=== PATIENT | female | born 1960 | race Caucasian/White ===

== ENCOUNTER 2017-04-26 16:41 | Observation (INO) ==
[2017-04-26] MEDS ORDERED: Nitroglycerin 0.4 MG TAB.SUBL SL ONE (16:59)
[2017-04-26 17:26] LABS: Basophils % 0.2 %; Eosinophils # 0.1 K/mcL (0.0-0.6); Eosinophils % 0.5 %; Hematocrit 40.4 % (35.3-44.9); Hemoglobin 13.5 g/dL (11.5-15.4); Immature Granulocytes % 0.4 % (0-4); Lymphocytes # 3.1 K/mcL (0.6-4.6); Lymphocytes % 20.4 %; Mean Corpuscular HGB Conc 33.4 g/dL (31.6-35.5); Mean Corpuscular Hemoglobin 27.6 pg (28.0-33.3); Mean Corpuscular Volume 82.4 fL (83.0-100.0); Mean Platelet Volume 9.3 fL (9.4-12.4); Monocytes # 0.6 K/mcL (0.0-1.3); Monocytes % 3.8 %; Neutrophils # 11.5 K/mcL (1.6-8.9); Platelet Count 284 K/mcL (140-400); Red Cell Distribution Width 12.6 % (11.5-14.5); Segmented Neutrophils % 74.7 %
[2017-04-26 17:39] LABS: BUN/Creatinine Ratio 13 (6-26); Blood Urea Nitrogen 12 mg/dL (7-20); Calcium 9.5 mg/dL (8.6-10.8); Carbon Dioxide 21 mEq/L (19-29); Chloride 104 mEq/L (98-109); Glucose 131 mg/dL (70-99); Osmolality,Calculated 284 (280-300); Potassium 3.5 mEq/L (3.5-4.5); Sodium 136 mEq/L (136-145); eGFR For African Americans > 60 (> 60); eGFR For Non-African Americans > 60 (> 60)
--- NOTE | 2017-04-26 18:01 | Emergency Department Note ---
Disposition Clinical Impression: Chest pain Qualifiers: Chest pain type: unspecified Qualified Code(s): R07.9 - Chest pain, unspecified Disposition: Admitted As Inpatient Condition: Fair Referrals: Nikki Palma CNP [Primary Care Provider] - Forms: ED Satisfaction Letter Time of Disposition: 18:29 Chest Pain HPI - General Chief Complaint: ED Chest Pain Stated Complaint: chest discomfort, nausea, vertigo Time Seen by Provider: 04/26/17 16:57 Source: patient, EMS Limitations: no limitations Vital Signs Reviewed: Yes Nursing Notes Reviewed: Yes - History of Present Illness HPI Narrative: Patient is a 56-year-old female who presents to [facility] ED with a chief complaint of substernal chest pain which she describes as a pressure. States this symptom started around 2:30 in the in the afternoon after she had finished doing some cleaning. Admits to some nausea with an episode of vomiting. No recent fevers or chills. States the pain radiates into her shoulder blades and into her shoulders. Denies any shortness of breath , abdominal pain, problems with urination or bowel movement. Patient did take a baby aspirin which states it seemed to help her symptoms. Pt complaint: chest pain Onset (ago): hour(s) Duration: intermittent Onset: during rest Pain Location: substernal Severity: mild Severity scale (1-10): 0 Quality: heaviness Pain Radiation: RUE, LUE, back - Related Data Previous Rx's Medication Instructions Recorded Amoxicillin 875 mg PO BID #20 tablet 12/23/15 Benzonatate [Tessalon] 200 mg PO TID PRN #30 capsule 12/23/15 GuaiFENesin ER [Mucinex] 1,200 mg PO BID #20 tbbp.12hr 12/23/15 Allergies Allergy/AdvReac Type Severity Reaction Status Date / Time Sulfa (Sulfonamide Allergy Nausea Verified 12/23/15 14:35 Antibiotics) All systems ED: reviewed and negative except as stated. Chest Pain PMH - Past Medical History Medical history: Reports: hyperlipidemia, hypertension Psychiatric history: Reports: no psych history 1[employer] history: Reports: ectopic - Social History Smoking Status: Current every day smoker Alcohol use: Reports: rarely Drug use: Reports: none Physical Exam CONSTITUTIONAL: Well-appearing; well-nourished; A&O X 3, in no apparent distress HEAD: Normocephalic; atraumatic EYES: PERRL, no scleral icterus NOSE: The nose is normal in appearance without rhinorrhea NECK: No JVD or distended neck veins RESP: Normal chest excursion with respiration; breath sounds clear and equal bilaterally; no wheezes, rhonchi, or rales CARD: Regular rhythm, without murmurs, rub or gallop ABD: Non-distended; non-tender, soft, without rigidity, rebound or guarding,no pulsatile mass CHEST: No pain with palpation SKIN: Normal for age and race; warm and dry without diaphoresis ; no apparent lesions EXTREMITIES: Pulses are 2 plus and equal times 4 extremities, no peripheral edema or calf muscle pain - General Limitations: no limitations General appearance: alert Course Course Narrative: Patient seen and examined. Chest pain described as a pressure. Has significant family cardiac history. Last stress test was many years ago. Patient has multiple risk factors including smoking, hypertension, hyperlipidemia as well. Cardiopulmonary workup initiated. We will give sublingual nitroglycerin trial. - Reevaluation(s) Reevaluation #1: Patient's chest pain went away with nitroglycerin. We will page hospitalist for admission for chest pain, rule out ACS. Time: 18:15 Reevaluation #2: Patient accepted by hospitalist Dr. Sinha. Time: 18:29 Vital Signs Temperature 97.6 F 04/26/17 16:46 Pulse Rate 61 04/26/17 16:46 Respiratory Rate 14 04/26/17 16:46 Blood Pressure 177/80 04/26/17 16:46 O2 Sat by Pulse Oximetry 98 04/26/17 16:46 Temperature 97.6 F 04/26/17 16:46 Pulse Rate 53 04/26/17 18:07 Respiratory Rate 14 04/26/17 18:07 Blood Pressure 147/62 04/26/17 18:07 O2 Sat by Pulse Oximetry 98 04/26/17 18:07 Oxygen Delivery Oxygen Delivery Room Air Chest Pain - Medical Records Medical records reviewed: Yes I reviewed the patient's medical records. - Lab Data Lab results reviewed: Yes I reviewed the patient's lab results. Result diagrams: 04/26/17 17:19 04/26/17 17:19 Lab Results 04/26/17 04/26/17 04/26/17 Range/Units 17:19 17:19 17:19 WBC 15.3 H (4.3-11.1) K/mcL RBC 4.90 (3.82-4.97) M/mcL Hgb 13.5 (11.5-15.4) g/dL Hct 40.4 (35.3-44.9) % MCV 82.4 L (83.0-100.0) fL MCH 27.6 L (28.0-33.3) pg MCHC 33.4 (31.6-35.5) g/dL RDW 12.6 (11.5-14.5) % Plt Count 284 (140-400) K/mcL MPV 9.3 L (9.4-12.4) fL Immature Gran % 0.4 (0-4) % Seg Neutrophils % 74.7 % Lymphocytes % 20.4 % Monocytes % 3.8 % Eosinophils % 0.5 % Basophils % 0.2 % Neutrophils # 11.5 H (1.6-8.9) K/mcL Lymphocytes # 3.1 (0.6-4.6) K/mcL Monocytes # 0.6 (0.0-1.3) K/mcL Eosinophils # 0.1 (0.0-0.6) K/mcL Basophils # 0.0 (0.0-0.2) K/mcL Sodium 136 (136-145) mEq/L Potassium 3.5 (3.5-4.5) mEq/L Chloride 104 (98-109) mEq/L Carbon Dioxide 21 (19-29) mEq/L BUN 12 (7-20) mg/dL Creatinine 0.91 (0.57-1.11) mg/dL Est GFR ( Amer) > 60 (> 60) Est GFR (Non-Af Amer) > 60 (> 60) BUN/Creatinine Ratio 13 (6-26) Glucose 131 H (70-99) mg/dL Calculated Osmolality 284 (280-300) Calcium 9.5 (8.6-10.8) mg/dL Troponin I 0.00 (0-0.03) ng/mL - Radiology Data Radiology results reviewed: Yes I reviewed the patient's radiology results. Chest X-Ray 04/26/17 16:59 IMPRESSION: No acute cardiopulmonary process D/ / 04/26/2017 17:27:26 David Li MD / veronika Interpreting Provider: David Li MD - EKG Data EKG attestation: Yes I reviewed and interpreted this EKG. EKG results narrative: EKG done at 1655 shows sinus bradycardia with a rate of [address] elevation or depression. Normal axis. Appears unchanged from prior EKG done . Heart Score - Score History: Moderately Suspicious EKG: Normal Age: 45-65 Risk Factors: Equal/Greater than 3 risk factor or history of atherosclerotic disease Troponin: Less than normal limit HEART Score Total: 4 Attestation Statement - Attestation Attestation: Patient was seen with resident physician. I reviewed the history, physical, assessment and plan, and agree with the findings. I also personally evaluated this patient and had [id number] time with this patient. 56-year-old female presents to the emergency department with sudden onset of chest pressure. Patient states that prior to arrival she developed the sensation of chest pressure as if she is being squeezed. There is some shortness of breath and some diaphoresis associated with that. She states that she is getting hot and cold flashes. She has not had cardiac disease in the past but does have a strong family history. She denies vomiting or diarrhea but has had some nausea. She was given nausea medication in route she said which showed minimum effectiveness. On examination vital signs are stable. ENT is unremarkable. Heart and lungs normal. Abdomen is soft and nontender. Extremities show no acute abnormalities. Neurologically she is intact. ED course workup for cardiac disease was negative. The chest pain resolved with one sublingual nitroglycerin. She was given aspirin. EKG showed no acute ischemic changes. Chest x-ray showed no acute abnormalities. Hospital service was notified at the need for admission. We will admit for cardiac rule out. Agree with resident physician assessment and plan.
[2017-04-26] MEDS ORDERED: Aspirin 81 MG TAB.CHEW PO STA (18:12)
[2017-04-26] MEDS ORDERED: Naloxone 0.4 MG/ML INJ IVP PRN (21:48)
[2017-04-26] MEDS ORDERED: Acetaminophen 325 MG TABLET PO PRN (21:48)
[2017-04-26] MEDS ORDERED: *HR* Morphine 2 MG/ML SYRINGE IVP PRN (21:48)
[2017-04-26] MEDS ORDERED: Ondansetron 4 MG/2 ML VIAL IVP PRN (21:48)
--- NOTE | 2017-04-26 22:02 | Internal Med History&Physical ---
Date of Encounter: 04/26/17 Time of Encounter: 21:20 Assessment and Plan (1) Chest pain Current visit: Yes Status: Acute 1. Patient with significant FH and smoking history -- both risk factors for CAD. 2. Will cycle troponins and EKG's. 3. Will schedule stress test for tomorrow. 4. Check lipid profile. 5. Smoking cessation well advised. Qualifiers: Chest pain type: precordial pain Qualified Code(s): R07.2 - Precordial pain (2) Near syncope Current visit: Yes Status: Acute 1. Will check ECHO and Carotid Dopplers. 2. Patient bradycardic on EKG (HR 50's) and states she takes Bisoprolol for HTN. 3. Need to verify meds. Hold home meds for now and monitor telemetry. 4. Stress test as above. (3) Esophageal stricture Current visit: Yes Status: Chronic 1. May be etiology for chest pain. 2. Needs to follow up with GI as outpatient once cardiac issues addressed. (4) DVT prophylaxis Current visit: Yes Status: Acute 1. Heparin SQ. Internal Medicine - H&P: HPI Chief complaint: chest pain, near syncope Admitted From: Emergency Dept Plans for Post Hospital Care: Home History of present illness: Ms. Nath is a 56 year old female who presents to ER with complaints of chest pain, lightheadedness, dizziness, and near syncope. She was in the middle of cleaning her bathroom earlier today when she experienced some lightheadedness and dizziness followed by substernal chest pain and pressure. She nearly collapsed and passed out, but she was able to brace herself and maintained consciousness. She was subsequently brought to the ER for evaluation and admitted to the hospitalist service. She is currently chest pain-free and feels well. She has extensive family history of premature coronary artery disease. Her mother of heart disease in her 50s. She has 2 siblings who from heart disease. Her dad of heart disease in his 80s. She also smokes and has smoked for many years. Of note, she also has hiatal hernia and had to have surgery a few years ago to fix her hiatal hernia. She also was diagnosed with esophageal stricture last year but she has been hesitant to undergo esophageal dilation. She denies any choking or difficulty swallowing today. She does admit to having food getting stuck in esophagus recurrently and she tends to eat soft foods and drink plenty of fluids. Today's episode, however, was not related to any meals or any food ingestion. Past Med Surg Social Fam HX - Past Medical History Attestation: Yes The following information was validated with the patient. Source: patient, old records reviewed Medical history: hyperlipidemia, hypertension Psychiatric history: no psych history - Past Surgical History Surgical History: other (hiatal hernia) - Social History Smoking Status: Current every day smoker Packs per day: 1 Smokeless Tobacco Status: No Alcohol use: rarely Drug use: none Current living situation: Home, With Family Activity Level: Independent ambulation Recent Out of Country Travel Within the Last 8 Weeks: No - Family History Mother History Unknown: Yes Father History Unknown: Yes Internal Medicine - H&P: Meds Amoxicillin 875 mg PO BID #20 tablet 12/23/15 [Rx] Benzonatate [Tessalon] 200 mg PO TID PRN #30 capsule 12/23/15 [Rx] GuaiFENesin ER [Mucinex] 1,200 mg PO BID #20 tbbp.12hr 12/23/15 [Rx] 3 Allergy/AdvReac Type Severity Reaction Status Date / Time Sulfa (Sulfonamide Allergy Nausea Verified 12/23/15 14:35 Antibiotics) - Constitutional Constitutional: no chills, no fever(s), no night sweats - EENT Eyes: no blurry vision, no change in vision Ears: no ear pain, no tinnitus Nose, mouth and throat: no nasal congestion, no sinus pressure, no sore throat - Cardiovascular Cardiovascular ROS IM: chest pain, lightheadedness, no diaphoresis, no dyspnea, no dyspnea on exertion, no palpitations, no syncope - Respiratory Respiratory: no cough, no dyspnea, no hemoptysis, no chest congestion - Gastrointestinal Gastrointestinal: dyspepsia, heartburn, no abdominal pain, no diarrhea, no hematemesis, no hematochezia, no melena, no nausea, no vomiting - Genitourinary Genitourinary: no dysuria, no flank pain, no hematuria - Musculoskeletal Musculoskeletal ROS IM: no arthralgias, no back pain - Integumentary Integumentary IM: no rash, no jaundice - Neurological Neurological ROS: dizziness, no focal weakness, no frequent falls, no headache(s ), no vertigo, no weakness - Psychiatric Psychiatric: no anxiety, no depression - Endocrine Endocrine IM: no cold intolerance, no heat intolerance, no polydipsia, no polyuria - Hematologic/Lymphatic Hematologic/Lymphatic: no easy bruising, no lymphadenopathy - Allergic/Immunologic Allergic/Immunologic: GI upset with certain foods, no wheezing - Constitutional Vitals: Temp Pulse Resp BP Pulse Ox 97.7 F 58 16 119/63 97 04/26/17 20:06 04/26/17 20:06 04/26/17 20:06 04/26/17 20:06 04/26/17 20:06 General appearance: Present: cooperative, A&O X 3, pleasant, no acute distress, answers questions appropriately - Head Head exam: Present: atraumatic, normal inspection - Eye Eye exam: Present: EOMI, normal appearance, PERRL. Absent: scleral icterus Pupils: Present: normal accommodation - ENT ENT exam: Present: mucous membranes moist, normal exam - Neck Neck exam general surgery: Present: full ROM, supple. Absent: lymphadenopathy, tenderness, nuchal rigidity - Expanded Neck Exam Neck exam: Absent: carotid bruit - Respiratory Respiratory exam: Present: CTAB. Absent: chest wall tenderness, rales, respiratory distress, rhonchi, wheezes - Cardiovascular Cardiovascular exam: Present: RRR, +S1, +S2. Absent: diastolic murmur, systolic murmur - GI/Abdominal GI/Abdominal exam: Present: soft. Absent: hepatomegaly, mass, splenomegaly, tenderness - Extremities Exam Extremities exam: Present: full ROM, warm, radial pulses palpable and symmetrical. Absent: calf tenderness, pedal edema - Back Exam Back exam: Absent: CVA tenderness (L), CVA tenderness (R) - Neurological Exam Neurological exam: Present: alert, CN II-XII intact, oriented X3, no focal deficits, strengths equal and symetr throughout - Psychiatric Psychiatric exam: Present: normal affect, normal mood - Skin Skin exam: Present: dry, warm. Absent: rash Internal Med - H&P Results - Labs CBC & Chem 7: 04/26/17 17:19 04/26/17 17:19 - EKG Data -: EKG Interpreted by Myself - EKG Data Prior EKG available for review: no EKG comments: 04/26/17 22:06 Sinus bradycardia; HR 50's; no acute ST-T changes - Diagnostic Studies Chest x-ray Status: image reviewed by me (negative)
[2017-04-26] MEDS: *HR* Heparin 5,000 UNIT/ML VIAL SQ SCH (22:22)
[2017-04-27] MEDS ORDERED: Regadenoson 0.4 MG/5 ML SYRINGE IVP ONE (05:56)
[2017-04-27] MEDS: *HR* Heparin 5,000 UNIT/ML VIAL SQ SCH ×2 (06:18→16:27)
[2017-04-27] MEDS: Pantoprazole 40 MG VIAL IVP SCH ×2 (06:19→17:44)
[2017-04-27 06:47] LABS: Basophils % 0.2 %; Eosinophils # 0.3 K/mcL (0.0-0.6); Eosinophils % 2.6 %; Hematocrit 39.4 % (35.3-44.9); Hemoglobin 12.9 g/dL (11.5-15.4); Immature Granulocytes % 0.1 % (0-4); Lymphocytes # 5.4 K/mcL (0.6-4.6); Lymphocytes % 47.4 %; Mean Corpuscular HGB Conc 32.7 g/dL (31.6-35.5); Mean Corpuscular Hemoglobin 27.6 pg (28.0-33.3); Mean Corpuscular Volume 84.2 fL (83.0-100.0); Mean Platelet Volume 9.9 fL (9.4-12.4); Monocytes # 0.7 K/mcL (0.0-1.3); Monocytes % 5.7 %; Neutrophils # 5.1 K/mcL (1.6-8.9); Platelet Count 273 K/mcL (140-400); Red Blood Count 4.68 M/mcL (3.82-4.97); Red Cell Distribution Width 12.9 % (11.5-14.5)
[2017-04-27 07:02] LABS: Alanine Aminotransferase 13 Units/L (0-55); Albumin 3.1 g/dL (3.5-5.0); Albumin/Globulin Ratio 0.9 (1.1-2.2); Alkaline Phosphatase 75 Units/L (38-126); Aspartate Amino Transferase 15 Units/L (5-34); BUN/Creatinine Ratio 14 (6-26); Bilirubin,Total 0.6 mg/dL (0.2-1.2); Blood Urea Nitrogen 11 mg/dL (7-20); Calcium 9.1 mg/dL (8.6-10.8); Carbon Dioxide 24 mEq/L (19-29); Chloride 106 mEq/L (98-109); Chol/HDL Ratio 6.2 (0-4.9); Cholesterol 198 mg/dL (< 200); Globulin 3.3 g/dL (2.4-3.5); Glucose 86 mg/dL (70-99); HDL Cholesterol 32 mg/dL (40-59); LDL Cholesterol,Calculated 141 mg/dL (0-99); Osmolality,Calculated 287 (280-300); Potassium 3.9 mEq/L (3.5-4.5); Sodium 139 mEq/L (136-145); Total Protein 6.4 g/dL (6.0-8.3); Triglycerides 125 mg/dL (< 150); eGFR For African Americans > 60 (> 60); eGFR For Non-African Americans > 60 (> 60)
--- NOTE | 2017-04-27 15:31 | Discharge Summary ---
Date of Encounter: 04/27/17 Time of Encounter: 15:16 - Discharge Diagnosis (1) Chest pain Status: Acute Qualifiers: Chest pain type: precordial pain Qualified Code(s): R07.2 - Precordial pain (2) Near syncope Status: Acute - Discharge Medications Home Medications: Bisoprolol/HCTZ 5/6.25 [Ziac 5/6.25] 1 tab PO DAILY 04/27/17 [History] Cholecalciferol (Vitamin D3) [Vitamin D] 2,000 unit PO DAILY 04/27/17 [History] Loratadine [Claritin] 10 mg PO DAILY 04/27/17 [History] Allergies/Adverse Reactions: 3 Allergy/AdvReac Type Severity Reaction Status Date / Time Sulfa (Sulfonamide Allergy Nausea Verified 12/23/15 14:35 Antibiotics) Procedures/tests Complete & Pending: Procedures Performed prior 72 hours Category Date Time Status NM erlinda perf SPECT multi [NM] Routine Exams 04/27/17 06:54 Taken ECG 12 lead ECG [ECG] AM 0600 Y 04/27/17 06:00 Ordered EV carotid duplex imaging BI Routine Y 04/27/17 21:48 Completed EV echocardiogram Routine Y 04/27/17 21:48 Completed SP pharm nuclear stress Routine Y 04/27/17 07:00 Completed Date of admission: 04/26/17 18:36 Primary care physician: Nikki Palma CNP Discharging clinician: Rayna Molina Anticipated date of discharge: 04/27/17 - Patient Status Condition: Fair - Discharge Instructions Follow Up With: Nikki Palma CNP [Primary Care Provider] - Hospital course: Ms. Nath is a 56 year old female - Time Spent with Patient Total time spent providing and/or coordinating discharge services: - Constitutional Vitals: Temp Pulse Resp BP Pulse Ox 98.1 F 57 16 136/74 98 04/27/17 10:53 04/27/17 14:55 04/27/17 10:53 04/27/17 14:55 04/27/17 10:53 General appearance: Present: cooperative, A&O X 3, pleasant, no acute distress, answers questions appropriately
--- NOTE | 2017-04-27 15:41 | Internal Med Progress Note ---
Date of Encounter: 04/27/17 Time of Encounter: 15:31 - Assessment and plan (1) Chest pain Current Visit: Yes Status: Acute Assessment and plan: Yunior aNth is a 56 y/o female with no significant PMH who presented to [facility] [place] on 04/26/2017 with complaints of chest pain and near syncope. She is placed in observation status for further workup and treatment. 1. Near syncope: reports episode of feeling as if she was going to pass out on day of presentation. Carotid Dopplers with DIANN 40-59% and minimal plaque throughout LICA. TTE with EF 60%, mild diastolic dysfunction and no wall motion abnormalities. No evidence of orthostasis. Etiology unknown at this time. Episode occurred after cleaning bathroom, could be related to cleaning agents however she has been bradycardic with heart rates in the 40s and 50s. Continue to monitor on telemetry, cardiology consulted 2. Chest pain: That occurred with near-syncopal episode on day of presentation. No known CAD. Echo as noted above, stress test negative for ischemia or infarct. No chest pain recurrence. Patient suspects chest pain secondary to anxiety secondary to near-syncopal episode. 3. Bradycardia: With heart rates in 40s and 50s. Home BB held. Monitor on telemetry. 4. Hypertension: Per history. BP controlled off home BB. Monitor BP and initiate antihypertensive agent as needed. 5. Carotid stenosis: Carotid Dopplers with DIANN 40-59% and minimal plaque throughout LICA. LDL 141. Start statin, ASA. 6. Leukocytosis: WBC 15 K on arrival. Possibly reactive. CXR non-acute. Afebrile. Hold on ATB. Lactic acid, urine culture pending Qualifiers: Chest pain type: precordial pain Qualified Code(s): R07.2 - Precordial pain (2) Near syncope Current Visit: Yes Status: Acute - Subjective Interval history: Seen and examined at bedside. Patient is new to me, information obtained from chart review and patient report. Patient says she feels significantly better, back to baseline. She reports an episode of feeling as if she was going to pass out and the day of presentation. Said she had just finished cleaning her bathroom. Has been at bedside and reports heavy cleaning agent odor. He also reports patient does have anxiety and thinks that may have played a role in her chest pain. No chest pain, shortness of breath or lightheadedness/ dizziness all my exam. - Constitutional Vitals: Temp Pulse Resp BP Pulse Ox 98.1 F 57 16 120/69 97 04/27/17 15:26 04/27/17 15:26 04/27/17 15:26 04/27/17 15:26 04/27/17 15:26 General appearance: Present: cooperative, A&O X 3, pleasant, no acute distress, answers questions appropriately - Head Head exam: Present: atraumatic, normocephalic - Eye Eye exam: Present: PERRL, conjuntiva pink, sclera anicteric Pupils: Present: PERRL - Neck Neck exam general surgery: Present: supple, trachea midline. Absent: lymphadenopathy - Respiratory Respiratory exam: Present: CTAB. Absent: accessory muscle use, rales, rhonchi, wheezes - Cardiovascular Cardiovascular exam: Present: RRR, +S1, +S2. Absent: diastolic murmur, gallop, rubs, systolic murmur - GI/Abdominal GI/Abdominal exam: Present: normal bowel sounds, soft, no peritoneal signs. Absent: distended, tenderness - Extremities Exam Extremities exam: Present: warm, radial pulses palpable and symmetrical. Absent : calf tenderness, cyanotic, pedal edema - Neurological Exam Neurological exam: Present: CN II-XII intact, oriented X3, no focal deficits. Absent: pronater drift, facial droop, speech deficit - Skin Skin exam: Present: dry, intact Internal Medicine: Result - Labs CBC & Chem 7: 04/27/17 05:33 04/27/17 05:33 Labs: Short CBC 04/27/17 Range/Units 05:33 WBC 11.5 H (4.3-11.1) K/mcL Hgb 12.9 (11.5-15.4) g/dL Hct 39.4 (35.3-44.9) % Plt Count 273 (140-400) K/mcL Neutrophils # 5.1 (1.6-8.9) K/mcL BMP 04/27/17 05:33 Sodium 139 Potassium 3.9 Chloride 106 Carbon Dioxide 24 BUN 11 Creatinine 0.80 Glucose 86 Calcium 9.1 Cardiac Enzymes 04/26/17 04/27/17 Range/Units 23:01 05:33 Troponin I 0.00 0.00 (0-0.03) ng/mL Liver Function 04/27/17 Range/Units 05:33 Total Bilirubin 0.6 (0.2-1.2) mg/dL AST 15 (5-34) Units/L ALT 13 (0-55) Units/L Alkaline Phosphatase 75 (38-126) Units/L Albumin 3.1 L (3.5-5.0) g/dL - Impressions Impressions Echocardiogram 04/27/17 21:48 Impressions: LVEF 60-65%. Normal LV chamber size, wall thickness and function. Mild left ventricular diastolic dysfunction. Normal right ventricular structure and function. Borderline mild pulmonary hypertension. No significant valvular dysfunction. Left Ventricular Wall Motion: Rest Echo Findings All wall segments showed normal motion. Findings: Study Quality * Technically adequate exam. ECG Findings * Sinus bradycardia. Left Ventricle * LVEF 60-65%. * Normal LV chamber size, wall thickness and function. * Mild left ventricular diastolic dysfunction. Right Ventricle * Normal right ventricular structure and function. Left Atrium * Normal left atrial size. Right Atrium * Normal right atrial size. Interatrial Septum * Interatrial septum not well evaluated. Aortic Valve * Aortic valve not well visualized. * No aortic regurgitation. * No aortic stenosis. Mitral Valve * Normal mitral valve structure and function. * No mitral regurgitation. * No mitral stenosis. Tricuspid Valve * Normal tricuspid valve structure and function. * Trace tricuspid regurgitation. * Borderline mild pulmonary hypertension. Pulmonic Valve * Normal pulmonic valve structure and function. * No pulmonic regurgitation. Aorta * Normally sized aortic root. Pericardium * The pericardium appears normal. IVC * Normal IVC dimensions and inspiratory collapse. Pulmonary Artery * Normal visualized portions of the main pulmonary artery. Consult Discharge Plan - Plan Referrals: Nikki Palma, NANCIE [Primary Care Provider] -
[2017-04-27] MEDS: Aspirin 81 MG TAB.CHEW PO SCH (16:27)
[2017-04-28 04:49] LABS: Hematocrit 37.1 % (35.3-44.9); Hemoglobin 11.9 g/dL (11.5-15.4); Mean Corpuscular HGB Conc 32.1 g/dL (31.6-35.5); Mean Corpuscular Volume 84.3 fL (83.0-100.0); Mean Platelet Volume 9.6 fL (9.4-12.4); Platelet Count 247 K/mcL (140-400); Red Cell Distribution Width 12.8 % (11.5-14.5)
[2017-04-28 05:06] LABS: BUN/Creatinine Ratio 18 (6-26); Blood Urea Nitrogen 13 mg/dL (7-20); Calcium 8.8 mg/dL (8.6-10.8); Carbon Dioxide 23 mEq/L (19-29); Chloride 109 mEq/L (98-109); Glucose 104 mg/dL (70-99); Osmolality,Calculated 290 (280-300); Potassium 3.7 mEq/L (3.5-4.5); Sodium 140 mEq/L (136-145); eGFR For African Americans > 60 (> 60); eGFR For Non-African Americans > 60 (> 60)
[2017-04-28] MEDS: *HR* Heparin 5,000 UNIT/ML VIAL SQ SCH (05:33)
[2017-04-28] MEDS: Pantoprazole 40 MG VIAL IVP SCH (05:34)
[2017-04-28 06:10] LABS: Bilirubin,Urine Negative (Negative); Blood,Urine Moderate (Negative); Clarity,Urine Clear (Clear); Color,Urine Yellow (Yellow); Glucose,Urine (UA) Normal (Normal); Ketones,Urine Negative (Negative); Leukocyte Esterase,Urine Small (Negative); Nitrite,Urine Negative (Negative); PH,Urine 5.5 pH Units (5.0-8.0); Protein,Urine Negative (Neg-Trace); Specific Gravity,Urine 1.027 (1.010-1.025); Urobilinogen,Urine Normal (Normal)
[2017-04-28 06:12] LABS: Bacteria,Urine None Seen per hpf (None-Few); Hyaline Casts,Urine None Seen per lpf (None-Few); RBC,Urine 0-3 per hpf (0-3); Squamous Epithelial Cell,Urine Many per lpf (None-Few)
--- NOTE | 2017-04-28 09:44 | Electrocardiograph Report ---
[place] [id number] Test Date: 2017-04-26 Pat Name: Yunior Nath Department: 103 Room: 3B39 Gender: F [employer]: : 1960 Requested By: Quan Poole Order Number: [id number] Reading MD: Demetri Abraham DO Measurements Intervals [place] Rate: 55 P: 59 [place]: 134 QRS: 28 QRSD: 90 T: 38 QT: 426 QTc: 415 Interpretive Statements SINUS BRADYCARDIA Electronically Signed On 04-28-2017 9:43:07 EST by Demetri Abraham DO
[2017-04-28] MEDS: Aspirin 81 MG TAB.CHEW PO SCH (10:05)
--- NOTE | 2017-04-28 10:37 | Cardiology Consult Note ---
Date of Encounter: 04/28/17 Time of Encounter: 10:32 Assessment and Plan (1) Bradycardia Current Visit: Yes Status: Acute Pt was on Bisoprolol at home, last dose taken Friday morning. Presented with chest pain and presyncope. EKG on admission HR 55. 24 hr tele AVG HR 56, longest pause 1.9 seconds, lowest HR 43. HR currently 60s, SR at bedside. Recommend avoiding AV raul blockers. No recurrence of symptoms since admission. Echo EF preserved, Stress test negative for ischemia or infarct. Reports snoring at night, last sleep study was 6 years ago, reportedly did not have sleep apnea at that time. Recommend repeat sleep study as outpt. No further cardiac testing is warranted during inpt stay. No PPM warranted. Anticipate sign off once seen and evaluated by Dr. Isaac. (2) Chest pain Current Visit: Yes Status: Acute Echo EF preserved, stress test negative for ischemia or infarct. Troponins negative and no ischemic EKG changes. Chest pain free since admission. Multiple risk factors for CAD--HTN, HLD, premature family hx. Recommend ASA, statin, lifestyle modification and smoking cessation. Qualifiers: Chest pain type: precordial pain Qualified Code(s): R07.2 - Precordial pain Discussion w patient/family: The assessment and plan as outlined above was discussed with the patient and/or family members who expressed understanding and agreement. All questions were answered. Thank you for involving us in the care of your patient. Please call with any questions. I will discuss all the above with Dr. Isaac and make changes as necessary. History of Present Illness Consult date: 04/28/17 Requesting physician: Rayna Molina Consult reason: Bradycardia Chief complaint: chest pain, lightheadedness History of present illness: Ms. Nath is a 56 year old female with PMH of HTN, HLD, GERD, tobacco abuse, who presented to ER with complaints of chest pain, lightheadedness, dizziness, and near syncope. She was in the middle of cleaning her bathroom when she experienced some lightheadedness and dizziness followed by substernal chest pain and pressure. She nearly collapsed and passed out, but she was able to brace herself and maintained consciousness. She was subsequently brought to the ER for evaluation and admitted to the hospitalist service. Shawnae reports the chest pain resolved spontaneously. She has extensive family history of premature coronary artery disease. Her mother of heart disease in her 50s. She has 2 siblings with heart disease. Her dad of heart disease in his 80s. Her troponins were negative, she underwent echo and stress test. Echo showed EF 60-65%, mild LVDD, borderline phtn. Stress test perfusion imaging negative for ischemia or infarct. Cardiology consulted for bradycardia. She was on Bisoprolol at home, last dose Friday morning. She denies any recurrent chest pain or dizziness since admission. 24 hour tele AVG HR 56. Longest pause 1.9 seconds, lowest HR 43. Past Med Surg Social Fam HX - Past Medical History Medical history: hyperlipidemia, hypertension Psychiatric history: no psych history - Past Surgical History Surgical History: other (hiatal hernia) - Social History Smoking Status: Current every day smoker Packs per day: 1 Smokeless Tobacco Status: No Alcohol use: rarely Drug use: none - Family History Mother History Unknown: Yes Father History Unknown: Yes Medications and Allergies Bisoprolol/HCTZ 5/6.25 [Ziac 5/6.25] 1 tab PO DAILY 04/27/17 [History] Cholecalciferol (Vitamin D3) [Vitamin D] 2,000 unit PO DAILY 04/27/17 [History] Loratadine [Claritin] 10 mg PO DAILY 04/27/17 [History] 3 Allergy/AdvReac Type Severity Reaction Status Date / Time Sulfa (Sulfonamide Allergy Nausea Verified 12/23/15 14:35 Antibiotics) All Systems Review: A 10-system review of systems was performed and is negative for pertinent findings except as documented above in the HPI. - Cardiovascular Cardiovascular: as per HPI, chest pain at rest, chest pain with exertion, dyspnea on exertion, lightheadedness Physical Examination Vital Signs, Last 4 Hours Temp Pulse Resp BP Pulse Ox 04/28/17 06:53 98.5 F 57 16 148/82 96 Vital Signs Temp Pulse Pulse Pulse Pulse Resp BP 04/28/17 06:53 98.5 F 57 16 148/82 04/28/17 03:29 98.0 F 58 16 115/65 04/27/17 23:46 97.7 F 54 16 117/65 04/27/17 19:03 97.8 F 63 16 136/60 04/27/17 15:26 98.1 F 57 16 120/69 04/27/17 14:55 57 64 61 04/27/17 10:53 98.1 F 49 16 123/73 BP BP BP Pulse Ox 04/28/17 06:53 96 04/28/17 03:29 99 04/27/17 23:46 95 04/27/17 19:03 93 04/27/17 15:26 97 04/27/17 14:55 136/74 128/74 132/83 04/27/17 10:53 98 Intake and Output 04/27/17 04/28/17 04/28/17 23:59 07:59 15:59 Intake Total 800 / 800 Balance 800 / 800 Intake: Oral 800 / 800 Other: Weight 57.71 kg Patient Weight 04/28/17 23:59 Weight 57.71 kg General: Conversant, No Apparent Distress HEENT: Atraumatic, Normocephaly, Mucus Membranes Moist Neck: No JVD, Normal carotid pulses Cardiac: Reg Rate and Rhythm, Normal S1 and S2, No Murmur Lungs: Normal Breath Sounds, No Wheeze, Rales, Rhonchi Neuro: Alert and responsive, No focal deficits noted Abdomen: Soft, Non-Tender Skin: No rashes noted on visualized skin Musculoskeletal: No Chest Wall Tenderness Extremities: No Clubbing, No Cyanosis, No Edema, Normal Pulses Results 04/28/17 04:29 04/28/17 04:29 Lab Results 04/28/17 04/28/17 04:29 04:29 WBC 9.5 Hgb 11.9 Hct 37.1 Plt Count 247 Sodium 140 Potassium 3.7 Chloride 109 Carbon Dioxide 23 BUN 13 Creatinine 0.73 Glucose 104 H Calcium 8.8 Short CBC 04/28/17 Range/Units 04:29 WBC 9.5 (4.3-11.1) K/mcL Hgb 11.9 (11.5-15.4) g/dL Hct 37.1 (35.3-44.9) % Plt Count 247 (140-400) K/mcL BMP 04/28/17 Range/Units 04:29 Sodium 140 (136-145) mEq/L Potassium 3.7 (3.5-4.5) mEq/L Chloride 109 (98-109) mEq/L Carbon Dioxide 23 (19-29) mEq/L BUN 13 (7-20) mg/dL Creatinine 0.73 (0.57-1.11) mg/dL Glucose 104 H (70-99) mg/dL Calcium 8.8 (8.6-10.8) mg/dL Urine 04/28/17 Range/Units 05:50 Urine Color Yellow (Yellow) Urine Clarity Clear (Clear) Urine pH 5.5 (5.0-8.0) pH Units Ur Specific [place] 1.027 H (1.010-1.025) Urine Protein Negative (Neg-Trace) mg/dL Urine Glucose (UA) Normal (Normal) mg/dL Impressions Echocardiogram 04/27/17 21:48 Impressions: LVEF 60-65%. Normal LV chamber size, wall thickness and function. Mild left ventricular diastolic dysfunction. Normal right ventricular structure and function. Borderline mild pulmonary hypertension. No significant valvular dysfunction. Left Ventricular Wall Motion: Rest Echo Findings All wall segments showed normal motion. Findings: Study Quality * Technically adequate exam. ECG Findings * Sinus bradycardia. Left Ventricle * LVEF 60-65%. * Normal LV chamber size, wall thickness and function. * Mild left ventricular diastolic dysfunction. Right Ventricle * Normal right ventricular structure and function. Left Atrium * Normal left atrial size. Right Atrium * Normal right atrial size. Interatrial Septum * Interatrial septum not well evaluated. Aortic Valve * Aortic valve not well visualized. * No aortic regurgitation. * No aortic stenosis. Mitral Valve * Normal mitral valve structure and function. * No mitral regurgitation. * No mitral stenosis. Tricuspid Valve * Normal tricuspid valve structure and function. * Trace tricuspid regurgitation. * Borderline mild pulmonary hypertension. Pulmonic Valve * Normal pulmonic valve structure and function. * No pulmonic regurgitation. Aorta * Normally sized aortic root. Pericardium * The pericardium appears normal. IVC * Normal IVC dimensions and inspiratory collapse. Pulmonary Artery * Normal visualized portions of the main pulmonary artery. Active Medications Acetaminophen (Tylenol) 650 mg PO Q6HR PRN PRN Reason: Mild Pain (1-3) Stop: 10/26/17 21:49 Aspirin (Aspirin) 81 mg PO DAILY [facility] Stop: 10/27/17 15:46 Last Admin: 04/28/17 10:05 Dose: 81 mg Atorvastatin Calcium (Lipitor) 20 mg PO HS [facility] Stop: 10/27/17 21:01 Last Admin: 04/27/17 20:52 Dose: Not Given Docusate Sodium (Colace) 100 mg PO BID PRN PRN Reason: Constipation Stop: 10/26/17 21:49 Heparin Sodium (Porcine) (Heparin) 5,000 unit SQ Q12HCO JAZMINE Stop: 10/26/17 22:01 Last Admin: 04/28/17 05:33 Dose: Not Given Morphine Sulfate (Morphine Sulfate) 2 mg IVP Q4HR PRN PRN Reason: Chest Pain Stop: 10/26/17 21:49 Naloxone HCl (Narcan) 0.4 mg IVP Q2MIN PRN PRN Reason: Opioid Reversal Stop: 10/26/17 21:49 Ondansetron HCl (Zofran) 4 mg IVP Q8HR PRN PRN Reason: Nausea And Vomiting Stop: 10/26/17 21:49 Pantoprazole Sodium (Protonix) 40 mg IVP Q12HR JAZMINE Stop: 10/27/17 06:01 Last Admin: 04/28/17 05:34 Dose: Not Given - Imaging and Cardiology Stress Test: report reviewed Echo: report reviewed - EKG Interpretation EKG results cardiology: personally reviewed, other (24 hr tele AVG HR 56, longest pause 1.9 seconds, lowest HR 43.) Consult Discharge Plan - Plan Referrals: Nikki Palma, [employer] [Primary Care Provider] -
[2017-04-28 11:28] VITALS: BP 106/65
[2017-04-28] MEDS ORDERED: amLODIPine 5 MG TABLET PO SCH (12:00)
--- NOTE | 2017-04-28 12:00 | Discharge Summary ---
Date of Encounter: 04/28/17 Time of Encounter: 10:58 - Discharge Diagnosis (1) Chest pain Priority: Primary Status: Acute Comments: Yunior Nath is a 56 y/o female with no significant PMH who presented to [facility] on 04/26/2017 with complaints of chest pain and near syncope. She is placed in observation status for further workup and treatment. 1. Near syncope: reports episode of feeling as if she was going to pass out on day of presentation. Carotid Dopplers with 40-59% stenosis to DIANN and minimal plaque throughout LICA. TTE with EF 60%, mild diastolic dysfunction and no wall motion abnormalities. No evidence of orthostasis. Possibly secondary to chemical fumes; episode occurred after cleaning bathroom and reported strong cleaning fumes. No recurrence of sx's while inpatient. No further work- up at this time 2. Chest pain: that occurred after near-syncopal episode on day of presentation. No known CAD. Serial troponins negative. EKG without acute ST changes. Echo as noted above, stress test negative for ischemia or infarct. No chest pain recurrence. Evaluated by Cardiology who recommended medical management. Cont ASA, patient declined statin 3. Bradycardia: With heart rates in 40s and 50s on arrival. Home BB held. Tele review showed average HR 56, longest pause 1.9 seconds, lowest HR 43. Evaluated by Cardiology who did not feel PPM warranted. Home BB stopped. HR in 60s at time of discharge 4. Hypertension: Per history. Home BB stopped. Start low dose amlodipine. Recommend follow-up with PCP in one week for BP recheck 5. Carotid stenosis: Carotid Dopplers with DIANN 40-59% and minimal plaque throughout LICA. LDL 141. Start ASA. Patient declines statin 6. Abnormal UTI: UA with pyuria and leuk esterase. Start macrobid. Follow urine culture, change ATB if needed Qualifiers: Chest pain type: precordial pain Qualified Code(s): R07.2 - Precordial pain (2) Near syncope Priority: Primary Status: Acute (3) Hypertension Priority: Primary Status: Acute Qualifiers: Hypertension type: essential hypertension Qualified Code(s): I10 - Essential (primary) hypertension - Discharge Medications Prescriptions: amLODIPine [Norvasc] 5 mg PO DAILY #30 tablet Aspirin 81 mg PO DAILY #30 tab.chew Nitrofurantoin (BID) [Macrobid] 100 mg PO BIDWM #14 capsule Home Medications: Cholecalciferol (Vitamin D3) [Vitamin D3] 2,000 unit PO DAILY 04/27/17 [History] Loratadine [Claritin] 10 mg PO DAILY 04/27/17 [History] Aspirin 81 mg PO DAILY #30 tab.chew 04/28/17 [Rx] Nitrofurantoin (BID) [Macrobid] 100 mg PO BIDWM #14 capsule 04/28/17 [Rx] amLODIPine [Norvasc] 5 mg PO DAILY #30 tablet 04/28/17 [Rx] Allergies/Adverse Reactions: 3 Allergy/AdvReac Type Severity Reaction Status Date / Time Sulfa (Sulfonamide Allergy Nausea Verified 12/23/15 14:35 Antibiotics) Procedures/tests Complete & Pending: Procedures Performed prior 72 hours Category Date Time Status NM erlinda perf SPECT multi [NM] Routine Exams 04/27/17 06:54 Taken ECG 12 lead ECG [ECG] AM 0600 Y 04/27/17 06:00 Ordered EV carotid duplex imaging BI Routine Y 04/27/17 21:48 Completed EV echocardiogram Routine Y 04/27/17 21:48 Completed SP pharm nuclear stress Routine Y 04/27/17 07:00 Completed Date of admission: 04/26/17 18:36 Primary care physician: Nikki Palma CNP Consults: 04/27/17 19:19 Consult to Cardiology [CONS] Routine Comment: Consulting Provider: Cardiology Larisa Reason for Consult: low heart rate Call Completed: No Discharging clinician: Rayna Molina Anticipated date of discharge: 04/28/17 - Patient Status Disposition: Home, Self-Care Condition: Good Functional capacity at discharge: independent ambulation Overall status at discharge: patient is back to baseline - Discharge Instructions Instructions: Amlodipine (By mouth), Urinary Tract Infection in Women (DC), Bradycardia (DC), Hypertension (DC) Follow Up With: Nikki Palma CNP [Primary Care Provider] - Additional Instructions: Please call your family care doctor within 24 hours or next business day to make a follow-up appointment for blood pressure recheck. - Diet and Activity Activity: increase activity as tolerated, resume usual activities as tolerated Diet: low fat, low cholesterol Interval History: Exam bedside. Patient says she feels back to baseline and wants to go home today. No recurrence of chest pain or lightheadedness/dizziness. Discussed new medications and she does not want to start statin at this time. Said she would like to try lifestyle and dietary changes. Hospital course: See assessment and plan for hospital course. - Time Spent with Patient Total time spent providing and/or coordinating discharge services: - Constitutional Vitals: Temp Pulse Resp BP Pulse Ox 98.5 F 57 16 148/82 96 04/28/17 06:53 04/28/17 06:53 04/28/17 06:53 04/28/17 06:53 04/28/17 06:53 General appearance: Present: cooperative, A&O X 3, pleasant, no acute distress, answers questions appropriately - Head Head exam: Present: atraumatic, normocephalic - Eye Eye exam: Present: PERRL, conjuntiva pink, sclera anicteric Pupils: Present: PERRL - Neck Neck exam general surgery: Present: supple, trachea midline. Absent: lymphadenopathy - Respiratory Respiratory exam: Present: CTAB. Absent: accessory muscle use, rales, rhonchi, wheezes - Cardiovascular Cardiovascular exam: Present: RRR, +S1, +S2. Absent: diastolic murmur, gallop, rubs, systolic murmur - GI/Abdominal GI/Abdominal exam: Present: normal bowel sounds, soft, no peritoneal signs. Absent: distended, tenderness - Extremities Exam Extremities exam: Present: warm, radial pulses palpable and symmetrical. Absent : calf tenderness, cyanotic, pedal edema - Neurological Exam Neurological exam: Present: CN II-XII intact, oriented X3, no focal deficits. Absent: pronater drift, facial droop, speech deficit - Skin Skin exam: Present: dry, intact
[2017-04-28] MEDS ORDERED: Nitrofurantoin (BID) 100 MG CAPSULE PO SCH (17:00)
== END 2017-04-28 12:58 | disposition home or self-care (01) ==
LOC: 3BNU 16:41 → EMEROO 16:41 → 3BNU 19:42
PROVIDERS: ADMIT Hospitalist; ATTEND Registered Nurse